=== PATIENT | female | born 1965 | race Caucasian/White ===

== ENCOUNTER → 2024-10-08 09:43 | Outpatient (REF) | payer OTHER, SELFPAY | LOC: HWWDC 09:43 | PROVIDERS: ATTENDING PHYSICIAN Obstetrics & Gynecology Gynecology; FAMILY PHYSICIAN Internal Medicine | DX: Z78.0 Asymptomatic menopausal state (principal); Z12.31 Encounter for screening mammogram for malignant neoplasm of breast | CPT/HCPCS: 77063; 77067; 77080 ==